=== PATIENT | male | born 1995 | race Caucasian/White ===

== ENCOUNTER 2016-07-17 11:47 | Emergency (ER) | payer OTHER ==
[~2016-07-17] VITALS: Ht 180.3 cm; Wt 83.7 kg
[~2016-07-17 11:47] MED LIST: Z.0.NO CURRENT MEDS
[2016-07-17 11:55] VITALS: BP 128/83; PULSE 74; RESP 16; TEMP 98.4; O2SAT 100
--- NOTE | 2016-07-17 12:06 | PD ---
HPI . laceration this morning to right index finger Chief Complaint: Laceration/Skin Injury Time Seen by Provider: 12:06 Travel History International Travel<30 days: No Contact w/Intl Traveler<30days: No Traveled to known affect area: No History of Present Illness HPI 20-year-old male here with complaints of a laceration to his right index finger that he injured this morning. Patient was using a clean box sealing inspector to cut some material and the blade broke and slipped back and cut him on his right index finger. He has a 2 cm laceration laterally extending medially on his right index finger. He did clean it off and wrapped it with some gauze. He does experience pain in that finger where laceration is located. He denies any other symptoms. He is accompanied by his father. PFSH Past Medical History ADD: Yes ADHD: No Asthma: Yes Autoimmune Disease: No Blood Disorders: No Anxiety: No Depression: No Cancer: No Cardiovascular Problems: No Diabetes: No Gastrointestinal Disorders: Yes Genitourinary: No Musculoskeletal: Yes Neurologic: Yes (subarachnoid bleed chi) Psychiatric: No Respiratory: No Migraines: No Seizures: No Thyroid Disease: No Ulcer: No Tetanus Vaccination: < 5 Years Influenza Vaccination: No ?: Not Past Surgical History Surgical History: No Previous Surgery Other Surgery: No Social History Alcohol Use: Yes (occ) Tobacco Use: No Substance Use: No Allergies-Medications (Allergen,Severity, Reaction): Coded Allergies: Amoxil (Verified Allergy, Severe, RASH, 07/17/16) Hepatitis B Vaccine (Verified Allergy, Mild, RASH, 07/17/16) Reported Meds & Prescriptions Reported Meds & Active Scripts Active Reported No Current Meds (Miscellaneous Medication) Misc Review of Systems General / Constitutional: No: Fever Eyes: No: Visual changes HENT: No: Headaches Cardiovascular: No: Chest Pain or Discomfort Respiratory: No: Shortness of Breath Gastrointestinal: No: Abdominal Pain Genitourinary: No: Dysuria Musculoskeletal: Positive: Pain (right index finger) Skin: No Rash Neurologic: No: Weakness Psychiatric: No: Depression Endocrine: No: Polydipsia Hematologic/Lymphatic: No: Easy Bruising Physical Exam Narrative GENERAL: AAO x 3, no acute distress, Well-nourished, well-developed patient. SKIN: Warm and dry. No visible rashes or bruising. HEAD: Normocephalic and atraumatic. EYES: No scleral icterus. No injection or drainage. EOM intact, PERRLA ENT: No nasal drainage noted. Mucous membranes pink. Airway patent. NECK: Supple, trachea midline. No JVD. CARDIOVASCULAR: Regular rate and rhythm without murmurs, gallops, or rubs. RESPIRATORY: Breath sounds equal bilaterally. No accessory muscle use. No rhonchi or rales. GASTROINTESTINAL: Abdomen soft, non-tender, nondistended. EXTREMITIES: No cyanosis or edema. RIght hand moving normally. Finger doesn't show any signs of damage to nerve, bone, vessels or ligaments. Sensation is normal. Cap refill is normal. BACK: Nontender without obvious deformity. No CVA tenderness. PSYCH: AAO x 3, normal affect. LACERATION LOCATION: Right index finger LENGTH: 2 cm NUMBER OF STITCHES/SHAVON: 5 REPAIR: The area of the laceration was prepped with Betadine and sterilely draped. The laceration was infiltrated with 1% lidocaine digital block. The wound was copiously irrigated and explored without evidence of foreign body, tendon injury or neurovascular injury. The wound was closed using 4-0 Ethilon. This was a single layer repair. A sterile dressing was applied. The patient was advised to keep the dressing clean and dry. Patient tolerated the procedure well. Data Data Last Documented VS Vital Signs Date Time Temp Pulse Resp B/P Pulse Ox O2 Delivery O2 Flow Rate FiO2 07/17/16 11:55 98.4 74 16 128/83 100 Orders Lidocaine 1% Inj (50 Ml) (Xylocaine 1% I (07/17/16 12:15) Tetanus/Diphtheria Tox Adult (Tetanus/Di (07/17/16 13:15) MDM Medical Decision Making Medical Screen Exam Complete: Yes Emergency Medical Condition: Yes Medical Record Reviewed: Yes Differential Diagnosis finger laceration, abrasion, less likely finger fracture Narrative Course 20-year-old male here with complaints of a laceration to his right index finger that he injured this morning. Patient was using a clean box sealing inspector to cut some material and the blade broke and slipped back and cut him on his right index finger. He has a 2 cm laceration laterally extending medially on his right index finger. He did clean it off and wrapped it with some gauze. He does experience pain in that finger where laceration is located. He denies any other symptoms. He is accompanied by his father. Patient seen and examined. He does have a right index finger laceration that is about 2 cm long starting laterally extending medially. He has full range of motion of all digits. Capillary refill is normal. No foreign body identified. No injury to vessels or nerves noted. Laceration repaired without incident. Tetanus given since patient cannot recall last date. Wound care discussed with patient. Discussed signs of infection and when to return. Advised that these (5) sutures will need to be removed in 7-10 days. Patient verbalized understanding of instructions, questions were answered, and thanked me for their care. I advised them if their condition worsens, please return to the nearest emergency room for further care. Procedures Procedure Narrative LACERATION LOCATION: Right index finger LENGTH: 2 cm NUMBER OF STITCHES/SHAVON: 5 REPAIR: The area of the laceration was prepped with Betadine and sterilely draped. The laceration was infiltrated with 1% lidocaine digital block. The wound was copiously irrigated and explored without evidence of foreign body, tendon injury or neurovascular injury. The wound was closed using 4-0 Ethilon. This was a single layer repair. A sterile dressing was applied. The patient was advised to keep the dressing clean and dry. Patient tolerated the procedure well. Diagnosis Primary Impression: Laceration of index finger Qualified Code: S61.218A - Laceration of index finger, initial encounter Patient Instructions: Finger Laceration (ED), General Instructions Additional Instructions: Please return to emergency department if your symptoms return or worsen. Follow up with your primary care provider. Use Tylenol or Motrin as needed for pain The sutures (5) will need to be removed in 7-10 days. As we discussed lookout for signs of infection. These include redness, swelling , pus drainage, warmth and streaking. Med/Other Pt SpecificInfo: Prescription(s) given Disposition: 01 DISCHARGE HOME Condition: Stable Rosalba Ivory Jul 17, 2016 12:06
[2016-07-17] MEDS ORDERED: LIDOCAINE HCL 1% 50 ML VIAL INFIL ONE (12:15)
[2016-07-17] MEDS ORDERED: TETANUS/DIPHTHERIA TOXOID ADULT 0.5 ML VIAL IM ONE (13:15)
== END 2016-07-17 13:47 | disposition home or self-care (01) ==
LOC: PHEFT 11:47
DX: S61.210A Laceration without foreign body of right index finger without damage to nail, initial encounter (principal); Z23 Encounter for immunization; Z87.09 Personal history of other diseases of the respiratory system; Z87.19 Personal history of other diseases of the digestive system; Z87.39 Personal history of other diseases of the musculoskeletal system and connective tissue; Z86.69 Personal history of other diseases of the nervous system and sense organs; Z86.59 Personal history of other mental and behavioral disorders; W27.8XXA Contact with other nonpowered hand tool, initial encounter
CPT/HCPCS: 12001; 90471; 90714

== ENCOUNTER 2016-07-18 09:50 | Emergency (ER) | payer OTHER ==
[~2016-07-18] VITALS: Ht 180.3 cm; Wt 84.0 kg
[2016-07-18 09:55] VITALS: BP 135/47; PULSE 64; RESP 14; TEMP 97.9; O2SAT 99
--- NOTE | 2016-07-18 10:25 | PD ---
HPI Chief Complaint: Wound/Suture/Staple Re-Check Time Seen by Provider: 10:13 Travel History International Travel<30 days: No Contact w/Intl Traveler<30days: No Traveled to known affect area: No History of Present Illness HPI 20yo M with no significant PMH presents to the ED with wound check. Pt had laceration repair at [facility] yesterday and last night thought one of the sutures popped open because it was bleeding through the gauze. Denies any fever or any other symptoms. States pain has actually improved. He was not sure so just wanted to have his wound check. PFSH Past Medical History ADD: Yes ADHD: No Asthma: Yes Autoimmune Disease: No Blood Disorders: No Anxiety: No Depression: No Cancer: No Cardiovascular Problems: No Diabetes: No Diminished Hearing: No Gastrointestinal Disorders: Yes Genitourinary: No Musculoskeletal: Yes Neurologic: Yes (subarachnoid bleed chi) Psychiatric: No Reproductive: No Respiratory: No Migraines: No Seizures: No Thyroid Disease: No Ulcer: No Tetanus Vaccination: < 5 Years Past Surgical History Other Surgery: No Social History Alcohol Use: Yes (occ) Tobacco Use: No Substance Use: No Allergies-Medications (Allergen,Severity, Reaction): Coded Allergies: Amoxil (Verified Allergy, Severe, RASH, 07/18/16) Hepatitis B Vaccine (Verified Allergy, Mild, RASH, 07/18/16) Reported Meds & Prescriptions Reported Meds & Active Scripts Active No Active Prescriptions or Reported Medications Review of Systems Except as stated in HPI: all other systems reviewed are Neg Physical Exam Narrative GEN: 20yo M not in distress. Right hand: [address] right index finger. There is some dry blood on the gauze but no bleeding from the wound. Wound is approximated well. No signs of infection or erythema. FROM in all joints in right index finger. Cap refill <2 sec. Radial pulse 2+. Data Data Last Documented VS Vital Signs Date Time Temp Pulse Resp B/P Pulse Ox O2 Delivery O2 Flow Rate FiO2 07/18/16 09:55 97.9 64 14 135/47 99 MDM Medical Decision Making Medical Screen Exam Complete: Yes Emergency Medical Condition: Yes Differential Diagnosis Wound check Narrative Course 20yo M well appearing here for wound check after laceration repair yesterday. Pt thought a suture had come out but all the sutures were intact. No active bleeding or signs of infection. Reassured patient. Return precautions given. Diagnosis Primary Impression: Visit for wound check Patient Instructions: General Instructions Departure Forms: Tests/Procedures Additional Instructions: Please return to the ED if you have fever, worsening pain, redness, pus or any signs of infection. Please remove sutures in 7-10 days. Med/Other Pt SpecificInfo: No Change to Meds Scripts No Active Prescriptions or Reported Meds Disposition: 01 DISCHARGE HOME Condition: Stable Romina Chavez DO Jul 18, 2016 10:25
== END 2016-07-18 10:33 | disposition home or self-care (01) ==
LOC: PHEFT 09:50
DX: Z48.817 Encounter for surgical aftercare following surgery on the skin and subcutaneous tissue (principal)
CPT/HCPCS: 99281